=== PATIENT | male | born 1955 | race Caucasian/White ===

== ENCOUNTER → 2017-04-17 | Outpatient (CLI) | payer OTHER ==
[~2017-04-17] MED LIST: ALLEGRA 180MG180 MG PO; ALLEGRA30 MG PO; ASPIRIN E.C. 8181 MG PO; ATACAND PO; CINNAMON500 MG PO; CLEOCIN HC150 MG/CAP PO; DIABETIC MED; GLIPIZIDE5 MG PO; IMDUR 30MG30 MG/TAB PO; METFORMIN500 MG PO; NORCO 325 MG-51 TAB PO; PLAVIX 75MG TAB75 MG PO; PRINIVIL2.5 MG PO; TOPROL XL 25MG25 MG PO; ZOCOR 40MG40 MG PO
[2017-04-17 17:09] LABS: BASO # 0.1 (0.0-0.2); BASO % 0.7 % (0.0-2.0); EOS # 0.2 (0.0-0.7); EOS % 2.9 % (0-4.0); GRAN # 3.3 (1.4-6.5); GRAN % 40.6 % (42.2-75.2); HEMATOCRIT 40.3 % (42.0-52.0); HEMOGLOBIN 13.6 g/dl (13.5-18.0); LYMPH # 3.6 (1.2-3.4); LYMPH % 44.8 % (20.0-51.0); MEAN CELL VOLUME 91 fl (80.0-100.0); MEAN CORPUSCULAR HEMOGLOBIN 31 pg (27.0-31.0); MEAN CORPUSCULAR HGB CONC 34 g/dl (33.0-37.0); MEAN PLATELET VOLUME 11.3 fl (7.4-10.4); MONO # 0.9 (0.1-0.6); MONO % 10.8 % (1.7-9.3); PLATELET COUNT 192 K/mm3 (130-400); RED BLOOD COUNT 4.42 M/mm3 (4.20-5.60); REDCELL DISTRIBUTION WIDTH-CV 12.5 % (11.5-14.5); WHITE BLOOD COUNT 8.1 K/mm3 (4.8-10.8)
[2017-04-17 17:13] LABS: ADJUSTED CALCIUM 9.5 mg/dL (8.4-10.2); ALBUMIN 4.3 gm/dL (3.5-5.0); BILIRUBIN,TOTAL 1.1 mg/dL (0.0-1.0); CALCIUM 9.7 mg/dL (8.4-10.2); CREATININE, serum 1.12 mg/dL (0.66-1.25); POTASSIUM 4.6 mmol/L (3.4-5.0); TOTAL PROTEIN 6.7 gm/dL (6.4-8.2)
[2017-04-17 17:22] LABS: PH 5 (5-8); SQUAMOUS EPITHELIAL None Seen /hpf; URINE APPEARANCE Clear; URINE BACTERIA None Seen /hpf; URINE BILIRUBIN Negative (NEGATIVE); URINE BLOOD Negative (NEGATIVE); URINE COLOR Yellow; URINE GLUCOSE Negative (NEGATIVE); URINE KETONE Negative (NEGATIVE); URINE RBC None Seen /hpf; URINE UROBILINOGEN Negative (NEGATIVE); URINE WBC 0-2 /hpf
== END ==
LOC: COL.LAB 16:31
PROVIDERS: Nurse Practitioner Primary Care
DX: R53.83 Other fatigue (principal)

== ENCOUNTER 2018-09-24 13:43 | Outpatient (RCR) | payer BC ==
[~2018-09-24 13:43] MED LIST changes: +BRILINTA90 MG PO; +BRINTELLIX20; +FLONASEALLERGY NS; +GLUCOPHAGE1000 MG PO; +IMDUR 60MG60 MG/TAB PO; -METFORMIN500 MG PO; +RANEXA 500MG T500 MG PO; +XANAX .25M0.25 MG/TA PO; +ZESTRIL 5MG5 MG PO
== END 2018-11-03 13:34 | disposition home or self-care (01) ==
LOC: COL.CR 13:43
DX: Z48.812 Encounter for surgical aftercare following surgery on the circulatory system (principal); Z95.5 Presence of coronary angioplasty implant and graft

== ENCOUNTER 2020-05-22 11:50 | Emergency (ER) | payer BC ==
[~2020-05-22] VITALS: Ht 172.7 cm; Wt 95.5 kg
[2020-05-22 11:55] VITALS: TEMP 98.3
[2020-05-22] MEDS ORDERED: BACTROBAN 22GM22 GM NAS (12:26)
[2020-05-22] MEDS ORDERED: NITROSTAT0.4 MG/TAB SL (12:27)
[2020-05-22] MEDS ORDERED: CRESTOR20 MG PO (12:28)
[2020-05-22 12:58] VITALS: BP 133/79; PULSE 68
== END 2020-05-22 12:58 | disposition home or self-care (01) ==
LOC: COL.ER 11:50
DX: H11.32 Conjunctival hemorrhage, left eye (principal); I25.10 Atherosclerotic heart disease of native coronary artery without angina pectoris; Z79.02 Long term (current) use of antithrombotics/antiplatelets; Z79.82 Long term (current) use of aspirin; Z79.84 Long term (current) use of oral hypoglycemic drugs; Z88.1 Allergy status to other antibiotic agents